=== PATIENT | female | born 1990 | race Two or more races ===

== ENCOUNTER → 2023-05-11 | Outpatient (CLI) | payer BC ==
[~2023-05-11] MED LIST: NITR-87 PO
[2023-05-11 10:03] LABS: Basophils # (auto) 0.1 10 ^3/uL (0-0.2); Basophils % (auto) 0.9 % (0.0-2.0); Eosinophils # (auto) 0.3 10 ^3/uL (0-0.8); Eosinophils % (auto) 3.6 % (0.0-7.0); Hematocrit 38.8 % (36.0-46.0); Hemoglobin 13.4 g/dL (12.2-16.2); Lymphocytes # (auto) 2.1 10 ^3/uL (0.4-5.4); Lymphocytes % (auto) 23.1 % (10.0-50.0); Mean Corpuscular Hemoglobin 28.4 pg (28.0-32.0); Mean Corpuscular Hgb Conc. 34.6 g/dL (32.0-36.0); Mean Corpuscular Volume 82.1 fL (80.0-100.0); Monocytes # (auto) 0.5 10 ^3/uL (0-1.3); Monocytes % (auto) 5.3 % (0.0-12.0); Neutrophils # (auto) 6.1 10 ^3/uL (1.6-8.6); Neutrophils % (auto) 67.1 % (37.0-80.0); Red Blood Cells 4.73 10^6/uL (4.0-5.20); Red Cell Distribution Width 13.8 % (11.8-14.3); White Blood Cell 9.2 10^3/uL (4.4-10.8)
[2023-05-11 10:34] LABS: Urine Bacteria NONE SEEN /hpf (None Seen); Urine Blood Negative /uL (Negative); Urine Clarity Clear (Clear); Urine Color Yellow (Yellow); Urine Mucus FEW (None Seen); Urine Protein, UAD Negative (Negative); Urine Specific Gravity 1.026 (1.001-1.035); Urine Urobilinogen Normal (Negative); Urine WBC 1 /hpf (0 - 5); Urine pH 5.5 (5.0-8.0)
[2023-05-11 10:42] LABS: Alanine Aminotransferase 17 U/L (7-40); Albumin 4.7 g/dL (3.2-4.8); Alkaline Phosphatase 100 U/L (46-116); Amylase 47 U/L (30-118); Anion Gap 6 (5-15); Aspartate Aminotransferase 15 U/L (13-40); BUN/Creatinine Ratio 11.8 (10.0-20.0); Blood Urea Nitrogen 11 mg/dL (9-23); Calcium 9.7 mg/dL (8.5-10.1); Carbon Dioxide 29 mmol/L (20-30); Chloride 104 mmol/L (98-107); Glucose 104 mg/dL (74-106); Potassium 3.8 mmol/L (3.5-5.1); Sodium 139 mmol/L (136-145)
[2023-05-11 10:43] LABS: Bilirubin, Total 0.5 mg/dL (0.2-1.0); Total Protein 7.5 g/dL (5.7-8.2)
[2023-05-11 10:45] LABS: Free T4 (Free Thyroxine) 0.93 ng/dL (0.89-1.76)
[2023-05-11 11:58] LABS: Lipase 45 U/L (12-53)
== END | disposition home or self-care (01) ==
LOC: LAB 09:45
DX: R10.13 Epigastric pain (principal); E53.8 Deficiency of other specified B group vitamins; E55.9 Vitamin D deficiency, unspecified; R11.0 Nausea
CPT/HCPCS: 36415; 80053; 81001; 82150; 82306; 82607; 83690; 84439; 84443; 85025

== ENCOUNTER 2023-05-12 15:07 | Emergency (ER) | payer BC ==
[~2023-05-12] VITALS: Ht 160 cm; Wt 85.9 kg
[2023-05-12] MEDS ORDERED: KETOROLAC TROMETH 60MG/2ML VIAL IM ONE (15:45)
[2023-05-12] MEDS ORDERED: METOCLOPRAMIDE HCL 10 MG TAB PO ONE (15:45)
[2023-05-12] MEDS ORDERED: ONDANSETRON HCL 4 MG/2 ML VIAL IM ONE (15:45)
[2023-05-12 16:29] VITALS: BP 111/66; PULSE 85; RESP 16; O2SAT 99
[2023-05-12 16:32] LABS: Basophils # (auto) 0.1 10 ^3/uL (0-0.2); Basophils % (auto) 0.4 % (0.0-2.0); Eosinophils # (auto) 0.2 10 ^3/uL (0-0.8); Eosinophils % (auto) 1.7 % (0.0-7.0); Hematocrit 38.1 % (36.0-46.0); Hemoglobin 13.1 g/dL (12.2-16.2); Lymphocytes # (auto) 1.8 10 ^3/uL (0.4-5.4); Lymphocytes % (auto) 12.2 % (10.0-50.0); Mean Corpuscular Hemoglobin 28.2 pg (28.0-32.0); Mean Corpuscular Hgb Conc. 34.4 g/dL (32.0-36.0); Mean Corpuscular Volume 81.9 fL (80.0-100.0); Monocytes # (auto) 0.7 10 ^3/uL (0-1.3); Monocytes % (auto) 4.9 % (0.0-12.0); Neutrophils # (auto) 11.6 10 ^3/uL (1.6-8.6); Neutrophils % (auto) 80.8 % (37.0-80.0); Red Blood Cells 4.65 10^6/uL (4.0-5.20); White Blood Cell 14.4 10^3/uL (4.4-10.8)
[2023-05-12 16:34] LABS: Alanine Aminotransferase 18 U/L (7-40); Albumin 4.6 g/dL (3.2-4.8); Alkaline Phosphatase 105 U/L (46-116); Anion Gap 4 (5-15); Aspartate Aminotransferase 12 U/L (13-40); BUN/Creatinine Ratio 11.9 (10.0-20.0); Blood Urea Nitrogen 12 mg/dL (9-23); Calcium 9.5 mg/dL (8.7-10.4); Carbon Dioxide 29 mmol/L (20-30); Chloride 104 mmol/L (98-107); Glucose 110 mg/dL (74-106); Lipase 45 U/L (12-53); Potassium 3.9 mmol/L (3.5-5.1); Sodium 137 mmol/L (136-145)
[2023-05-12 16:35] LABS: Bilirubin, Total 0.4 mg/dL (0.2-1.0); Total Protein 7.5 g/dL (5.7-8.2)
[2023-05-12 18:08] LABS: Urine Bacteria NONE SEEN /hpf (None Seen); Urine Blood 1+ /uL (Negative); Urine Clarity HAZY (Clear); Urine Color Yellow (Yellow); Urine Mucus FEW (None Seen); Urine Protein, UAD TRACE (Negative); Urine Specific Gravity 1.032 (1.001-1.035); Urine Urobilinogen Normal (Negative); Urine WBC 8 /hpf (0 - 5); Urine pH 5.5 (5.0-8.0)
[2023-05-12] MEDS ORDERED: NITROFURANTOIN 100 mg CAP PO ONE (20:30)
[2023-05-12] MEDS ORDERED: NITR-87 PO (20:44)
== END 2023-05-12 22:07 | disposition home or self-care (01) ==
LOC: ER 15:07
DX: N39.0 Urinary tract infection, site not specified (principal); Z88.2 Allergy status to sulfonamides; Z90.89 Acquired absence of other organs
CPT/HCPCS: 36415; 74176; 80053; 81001; 81025; 83690; 85025; 96372; 99285; J1885; J2405; J8597

== ENCOUNTER 2023-08-17 06:45 | Inpatient (IN) | payer BC ==
[2023-08-12 10:49] LABS: Basophils # (auto) 0.1 10 ^3/uL (0-0.2); Basophils % (auto) 0.9 % (0.0-2.0); Eosinophils # (auto) 0.3 10 ^3/uL (0-0.8); Eosinophils % (auto) 3.7 % (0.0-7.0); Hematocrit 36.9 % (36.0-46.0); Hemoglobin 12.7 g/dL (12.2-16.2); Lymphocytes # (auto) 2.2 10 ^3/uL (0.4-5.4); Lymphocytes % (auto) 26.1 % (10.0-50.0); Mean Corpuscular Hemoglobin 28.5 pg (28.0-32.0); Mean Corpuscular Hgb Conc. 34.5 g/dL (32.0-36.0); Mean Corpuscular Volume 82.7 fL (80.0-100.0); Monocytes # (auto) 0.5 10 ^3/uL (0-1.3); Monocytes % (auto) 5.4 % (0.0-12.0); Neutrophils # (auto) 5.5 10 ^3/uL (1.6-8.6); Neutrophils % (auto) 63.9 % (37.0-80.0); Red Blood Cells 4.46 10^6/uL (4.0-5.20); Red Cell Distribution Width 14.2 % (11.8-14.3); White Blood Cell 8.5 10^3/uL (4.4-10.8)
[2023-08-12 11:10] LABS: INR 0.98 (0.9-1.15); Partial Thromboplastin Time 28.2 SEC (24.5-34.5); Prothrombin Time 10.3 sec (9.3-11.8)
[2023-08-12 11:18] LABS: Urine Bacteria NONE SEEN /hpf (None Seen); Urine Blood Negative /uL (Negative); Urine Clarity Clear (Clear); Urine Color Colorless (Yellow); Urine Protein, UAD Negative (Negative); Urine Specific Gravity 1.018 (1.001-1.035); Urine Urobilinogen Normal (Negative); Urine WBC <1 /hpf (0 - 5)
[2023-08-12 11:21] LABS: Alanine Aminotransferase 17 U/L (7-40); Alkaline Phosphatase 88 U/L (46-116); Anion Gap 6 (5-15); BUN/Creatinine Ratio 9.9 (10.0-20.0); Blood Urea Nitrogen 8 mg/dL (9-23); Calcium 9.4 mg/dL (8.5-10.1); Carbon Dioxide 28 mmol/L (20-30); Chloride 106 mmol/L (98-107); Glucose 87 mg/dL (74-106); Potassium 3.7 mmol/L (3.5-5.1); Sodium 140 mmol/L (136-145)
[2023-08-12 11:22] LABS: Albumin 4.2 g/dL (3.2-4.8); Aspartate Aminotransferase 19 U/L (13-40)
[2023-08-12 11:23] LABS: Bilirubin, Total 0.3 mg/dL (0.2-1.0); Total Protein 6.8 g/dL (5.7-8.2)
[~2023-08-17] VITALS: Ht 157.5 cm; Wt 97.1 kg
[~2023-08-17 06:45] MED LIST changes: +ESCI5TAB PO; -NITR-87 PO; +ZOFR4T PO
[2023-08-17] MEDS ORDERED: ceFAZolin 2 GM/D5W100ml 100 ML IV ONE (06:57)
[2023-08-17] MEDS ORDERED: SUCCINYLCHOLINE CHLORIDE 20 MG/ML 10ML VIAL IV ONE (07:35)
[2023-08-17] MEDS ORDERED: fentaNYL CITRATE 100 MCG/2 ML VL ONE (07:37)
[2023-08-17] MEDS ORDERED: levoFLOXacin 500MG 100 ML IV ONE (07:38)
[2023-08-17] MEDS ORDERED: PROPOFOL 10 MG/ML 20 ML IV ONE (07:39)
[2023-08-17] MEDS ORDERED: LIDOCAINE W/ EPINEPHRINE 1% 20ML VIAL ONE (07:50)
[2023-08-17] MEDS ORDERED: BUPIVACAINE 0.5% P/F INJ 10 ML VIAL ONE (07:50)
[2023-08-17] MEDS ORDERED: ONDANSETRON HCL 4 MG/2 ML VIAL ONE (08:04)
[2023-08-17] MEDS ORDERED: DexAMETHasone SOD PHOS 10MG/1ML VIAL INJ ONE (08:04)
[2023-08-17] MEDS ORDERED: ROCURONIUM 10MG/ML 10ML VIAL IV ONE (08:05)
[2023-08-17] MEDS ORDERED: MEPERIDINE HCL (25 MG/ML) 1ML VIAL ONE ×2 (08:18→08:44)
[2023-08-17] MEDS ORDERED: SUGAMMADEX 200mg/2ml Vial (100MG/ML) IV ONE (08:40)
[2023-08-17] MEDS ORDERED: HYDROmorphone HCL 2 MG/ML VL/or syr IV PRN ×2 (08:45→09:00)
[2023-08-17] MEDS ORDERED: D5W/SOD CHL 0.45%/KCL 20MEQ 1,000 ML IV ONE (08:45)
[2023-08-17] MEDS ORDERED: ONDANSETRON HCL 4 MG/2 ML VIAL IV PRN (08:45)
[2023-08-17 08:54] VITALS: RESP 13; O2SAT 93
[2023-08-17] MEDS ORDERED: ONDANSETRON HCL 4 MG/2 ML VIAL IV ONE (09:00)
[2023-08-17] MEDS ORDERED: MEPERIDINE HCL (25 MG/ML) 1ML VIAL IV PRN (09:00)
[2023-08-17 09:24] LABS: Basophils # (auto) 0.1 10 ^3/uL (0-0.2); Basophils % (auto) 0.8 % (0.0-2.0); Eosinophils # (auto) 0.3 10 ^3/uL (0-0.8); Eosinophils % (auto) 3.8 % (0.0-7.0); Hematocrit 40.8 % (36.0-46.0); Hemoglobin 13.9 g/dL (12.2-16.2); Lymphocytes # (auto) 2.3 10 ^3/uL (0.4-5.4); Lymphocytes % (auto) 26.3 % (10.0-50.0); Mean Corpuscular Hemoglobin 28.1 pg (28.0-32.0); Mean Corpuscular Volume 82.5 fL (80.0-100.0); Monocytes # (auto) 0.5 10 ^3/uL (0-1.3); Monocytes % (auto) 5.8 % (0.0-12.0); Neutrophils # (auto) 5.6 10 ^3/uL (1.6-8.6); Neutrophils % (auto) 63.3 % (37.0-80.0); Nucleated Red Blood Cells % 0.1 %; Red Blood Cells 4.95 10^6/uL (4.0-5.20); Red Cell Distribution Width 14.1 % (11.8-14.3); White Blood Cell 8.8 10^3/uL (4.4-10.8)
[2023-08-17] MEDS ORDERED: DOCUSATE SOD 100 MG CAP PO PRN (09:30)
[2023-08-17] MEDS ORDERED: ACETAMINOPHEN 325 MG TAB PO PRN (09:30)
[2023-08-17 11:16] VITALS: BP 119/77; PULSE 93; RESP 18; TEMP 98.3; O2SAT 95
[2023-08-17 11:24] VITALS: BP 119/77; PULSE 93; PULSE 95; RESP 18; TEMP 98.3; O2SAT 93
[2023-08-17] MEDS: PANTOPRAZOLE 40 MG/10 ML VIAL INJ IV SCH (11:54)
[2023-08-17] MEDS: HYDROcodone-ACET 5/325MG TAB PO PRN ×3 (11:54→23:17)
[2023-08-17] MEDS: levoFLOXacin 500MG 100 ML IV SCH (11:54)
[2023-08-17 13:00] VITALS: BP 119/77; PULSE 93; RESP 18; TEMP 98.3; O2SAT 95
[2023-08-17] MEDS: HYDROmorphone HCL 2 MG/ML VL/or syr IV PRN ×2 (15:06→20:38)
[2023-08-17] MEDS: SODIUM CHLOR 0.9% PF (SALINE LOCK) 10ML VIAL/SYR IV SCH ×2 (15:07→22:14)
[2023-08-17 16:39] VITALS: BP 111/66; PULSE 93; RESP 18; TEMP 98.3; O2SAT 96
[2023-08-17 22:00] VITALS: BP 120/73; PULSE 98; RESP 16; TEMP 98.2; O2SAT 96
[2023-08-18] MEDS: HYDROmorphone HCL 2 MG/ML VL/or syr IV PRN ×2 (01:20→09:12)
[2023-08-18] MEDS: SODIUM CHLOR 0.9% PF (SALINE LOCK) 10ML VIAL/SYR IV SCH ×3 (05:10→21:25)
[2023-08-18] MEDS: HYDROcodone-ACET 5/325MG TAB PO PRN (05:10)
[2023-08-18] MEDS: ONDANSETRON HCL 4 MG/2 ML VIAL IV PRN ×2 (05:10→09:13)
[2023-08-18 05:23] VITALS: BP 119/55; PULSE 91; RESP 19; TEMP 97.9; O2SAT 94
[2023-08-18 09:05] VITALS: BP 121/73; PULSE 83; RESP 15; TEMP 98.6; O2SAT 91
[2023-08-18] MEDS: PANTOPRAZOLE 40 MG/10 ML VIAL INJ IV SCH (10:18)
[2023-08-18] MEDS: levoFLOXacin 500MG 100 ML IV SCH (10:18)
[2023-08-18 12:52] VITALS: BP 97/41; PULSE 77; RESP 15; TEMP 98.4; O2SAT 93
[2023-08-18] MEDS: OXYCODONE W/ ACETAMINOPHEN 5/325MG TABLET PO PRN ×2 (14:14→20:12)
[2023-08-18 16:44] VITALS: BP 108/56; PULSE 90; RESP 20; TEMP 97.8; O2SAT 94
[2023-08-18 20:00] VITALS: PULSE 72
[2023-08-18] MEDS: DOCUSATE SOD 100 MG CAP PO SCH (21:23)
[2023-08-18 22:00] VITALS: BP 111/67; PULSE 72; RESP 20; O2SAT 95
[2023-08-19 05:00] VITALS: BP 99/48; PULSE 71; RESP 20; TEMP 98.2; O2SAT 93
[2023-08-19] MEDS: SODIUM CHLOR 0.9% PF (SALINE LOCK) 10ML VIAL/SYR IV SCH (06:20)
[2023-08-19] MEDS: OXYCODONE W/ ACETAMINOPHEN 5/325MG TABLET PO PRN (08:47)
[2023-08-19] MEDS: DOCUSATE SOD 100 MG CAP PO SCH (08:47)
[2023-08-19] MEDS: PANTOPRAZOLE 40 MG/10 ML VIAL INJ IV SCH (08:47)
[2023-08-19] MEDS ORDERED: PERCOT PO (10:41)
[2023-08-19] MEDS ORDERED: DOCU-265 PO (10:47)
[2023-08-19 10:48] VITALS: BP 132/72; PULSE 78; RESP 18; TEMP 98; O2SAT 94
[2023-08-19 11:17] VITALS: BP 132/72; PULSE 78; RESP 18; TEMP 98; O2SAT 94
[2023-08-19 12:38] VITALS: BP 104/62; PULSE 70; RESP 18; TEMP 98; O2SAT 96
== END 2023-08-19 12:40 | disposition home or self-care (01) | DRG 419 ==
LOC: SUR 06:45 → EEVIPCON 08:15 → OVERFLOW 09:22 → CENTRAL 11:27
PROVIDERS: ADMIT Internal Medicine; ATTEND Nurse Practitioner Acute Care
PROC: 0FT44ZZ Resection of Gallbladder, Percutaneous Endoscopic Approach (ICD-10-PCS; principal; 2023-08-17 07:58)
DX: K80.00 Calculus of gallbladder with acute cholecystitis without obstruction (principal); K59.00 Constipation, unspecified; E66.9 Obesity, unspecified; Z68.39 Body mass index [BMI] 39.0-39.9, adult
CPT/HCPCS: 36415; 80053; 81001; 82247; 84702; 85025; 85610; 85730; 86850; 86900; 86901; C9113; G0378; J0330; J1100; J1956; J2405; J2704; J3490

== ENCOUNTER → 2024-11-27 | Outpatient (CLI) | payer BC ==
[~2024-11-27] MED LIST changes: +DOCU-265 PO; +PERCOT PO
[2024-11-27 09:27] LABS: Basophils # (auto) 0.1 10 ^3/uL (0-0.2); Basophils % (auto) 0.8 % (0.0-2.0); Eosinophils # (auto) 0.3 10 ^3/uL (0-0.8); Eosinophils % (auto) 3.1 % (0.0-7.0); Hematocrit 39.6 % (36.0-46.0); Hemoglobin 13.6 g/dL (12.2-16.2); Lymphocytes # (auto) 2.3 10 ^3/uL (0.4-5.4); Lymphocytes % (auto) 24.2 % (10.0-50.0); Mean Corpuscular Hemoglobin 27.9 pg (28.0-32.0); Mean Corpuscular Hgb Conc. 34.3 g/dL (32.0-36.0); Mean Corpuscular Volume 81.2 fL (80.0-100.0); Monocytes # (auto) 0.5 10 ^3/uL (0-1.3); Monocytes % (auto) 4.9 % (0.0-12.0); Neutrophils # (auto) 6.3 10 ^3/uL (1.6-8.6); Nucleated Red Blood Cells % 0.1 %; Platelet Count (auto) 245 10^3/uL (140-450); Red Blood Cells 4.87 10^6/uL (4.0-5.20); White Blood Cell 9.4 10^3/uL (4.4-10.8)
[2024-11-27 09:44] LABS: Alanine Aminotransferase 22 U/L (7-40); Albumin 4.5 g/dL (3.2-4.8); Alkaline Phosphatase 97 U/L (46-116); Anion Gap 7 (5-15); BUN/Creatinine Ratio 13.6 (10.0-20.0); Blood Urea Nitrogen 12 mg/dL (9-23); Calcium 9.8 mg/dL (8.7-10.4); Carbon Dioxide 28 mmol/L (20-31); Chloride 105 mmol/L (98-107); Glucose 96 mg/dL (74-106); Potassium 4.3 mmol/L (3.5-5.1); Sodium 140 mmol/L (136-145); Total Protein 7.5 g/dL (5.7-8.2); Triglycerides 144 mg/dL (< 150)
[2024-11-27 09:45] LABS: Aspartate Aminotransferase 13 U/L (13-40); Cholesterol 165 mg/dL (< 200); HDL Cholesterol 36 mg/dL (40-59); LDL Cholesterol 117 mg/dL (< 100)
[2024-11-27 09:46] LABS: Bilirubin, Total 0.5 mg/dL (0.2-1.0)
== END | disposition home or self-care (01) ==
LOC: LAB 09:02
PROVIDERS: ATTEND Nurse Practitioner Family
DX: R03.0 Elevated blood-pressure reading, without diagnosis of hypertension (principal); F41.9 Anxiety disorder, unspecified; Z00.01 Encounter for general adult medical examination with abnormal findings
CPT/HCPCS: 36415; 80053; 80061; 84443; 85025

== ENCOUNTER 2025-01-13 18:50 | Emergency (ER) | payer BC ==
[~2025-01-13] VITALS: Ht 157.5 cm; Wt 88.5 kg
--- NOTE | 2025-01-13 19:12 | ED.PDOC ---
PATENTED HOGSHEAD ASSEMBLER HPI Comments 34 y/o obese F presents for sudden worsening abdominal cramping pain, with associated vaginal bleeding and blot clot production. Patient reports having abdominal cramps since having an IUD placed by her PATENTED HOGSHEAD ASSEMBLER on 01/04/25 but reports severe pain today. Pain is described as cramping. Patient states her normal menstrual cycle began on 01/09/25. Denies any heavy vaginal bleeding, urinary symptoms, nausea, vomiting, or other associated symptoms. Patient states she last saw her PATENTED HOGSHEAD ASSEMBLER on 01/11/25 and was reassured her IUD was in place. Patient also has history of tonsillectomy, cholecystectomy, and remote history of seizure (last was in 2006). Patient took Advil dual action and 3x 200mg Ibuprofen at 1600 and 1700, respectively, with no improvement of pain. Chief Complaint: Abdominal Pain Time Seen by MD: 19:00 Reviewed Notes: Nurses Notes, Medications, Allergies Allergies: Coded Allergies: Cephalexin (Unverified Allergy, Intermediate, diarrhea, N/V, 08/12/23) Nitrofurantoin (Unverified Allergy, Intermediate, facial rash, 08/12/23) Sulfa Drugs (Unverified Allergy, Intermediate, tongue swells, 08/12/23) Home Meds Active Scripts Docusate Sodium (Docusate Sodium) 100 Mg Cap, 100 MG PO BID for 7 Days, #14 CAP Prov:KASHIF TOLENTINO FINANCE ASSISTANT 08/19/23 Oxycodone W/ Acetaminophen (Percocet 5/325MG) 1 Tab Tb, 1 TAB PO QID for 4 Days, #16 TAB Prov:KASHIF TOLENTINO FINANCE ASSISTANT 08/19/23 Reported Medications Escitalopram Oxalate (Lexapro) 5 Mg Tab, 5 MG PO HS, TAB 08/12/23 Ondansetron Odt 4MG Tab (ZOFRAN PO) 4 Mg Tb, 4 MG PO PRN, TAB ODT TAB-DISSOLVE IN MOUTH, THEN SWALLOW 08/12/23 Information Source: Patient Past Medical History PAST MEDICAL HISTORY: Seizures Surgical History: Cholecystectomy, Tonsillectomy GRID MAKER History: Denies all GRID MAKER Hx Family History Family History: Reviewed,noncontributory to illness Social History Smoker: Non-Smoker Alcohol: Occasionally Drugs: Denies Drug Use Lives In: Home All Other Systems: Reviewed and Negative (Comprehensive review of systems are negative unless otherwise stated in HPI) Physical Exam General Appearance: No Apparent Distress, Obese HEENT: Other (Pupils and face symmetric. Moist mucous membranes.) Neck: Full Range of Motion, Normal Inspection Respiratory: Lungs Clear, No Accessory Muscle Use, No Respiratory Distress, Normal Breath Sounds Cardiovascular: No Edema, No JVD, Regular Rate/Rhythm Breast Exam: Deferred Gastrointestinal: Soft, Suprapubic, Tenderness Genitalia: Deferred Pelvic: Deferred Rectal: Deferred Extremities: Normal inspection, Normal range of motion, Non-tender, No pedal edema Neurologic: Alert (Oriented x4), Normal Affect, Normal Mood, Other (Ambulatory) Cerebellar Function: NOT DONE Reflexes: NOT DONE Skin: Dry, Normal Color, Warm Lymphatic: NOT DONE Was a procedure done? Was a procedure done?: No Differential Diagnosis (GRID MAKER) Vaginal Bleeding: Blood Loss Anemia, Cervicitis, Hormonal, Menstrual Bleeding, Myomatous Uterus, UTI Vaginal Discharge: Comments Displaced IUD, among others X-Ray, Labs, Meds, VS Vital Signs Date Time Temp Pulse Resp B/P (MAP) Pulse Ox O2 Delivery O2 Flow Rate FiO2 01/13/25 19:58 84 16 96 Room Air* 0 21 01/13/25 19:58 98.2 82 18 141/87 (105) 95 98.2 01/13/25 18:56 99.0 100 17 128/78 (95) 97 99.0 Lab Test 01/13/25 19:12 01/13/25 18:59 Range/Units White Blood Count 9.2 4.4-10.8 10^3/uL Red Blood Count 4.39 4.0-5.20 10^6/uL Hemoglobin 12.3 12.2-16.2 g/dL Hematocrit 35.6 L 36.0-46.0 % Mean Corpuscular Volume 81.0 80.0-100.0 fL Mean Corpuscular Hemoglobin 28.0 28.0-32.0 pg Mean Corpuscular Hemoglobin Concent 34.6 32.0-36.0 g/dL Red Cell Distribution Width 13.6 11.8-14.3 % Platelet Count 236 140-450 10^3/uL Mean Platelet Volume 8.8 6.9-10.8 fL Neutrophils (%) (Auto) 68.4 37.0-80.0 % Lymphocytes (%) (Auto) 21.4 10.0-50.0 % Monocytes (%) (Auto) 5.1 0.0-12.0 % Eosinophils (%) (Auto) 4.3 0.0-7.0 % Basophils (%) (Auto) 0.8 0.0-2.0 % Neutrophils # (Auto) 6.3 1.6-8.6 10 ^3/uL Lymphocytes # (Auto) 2.0 0.4-5.4 10 ^3/uL Monocytes # (Auto) 0.5 0-1.3 10 ^3/uL Eosinophils # (Auto) 0.4 0-0.8 10 ^3/uL Basophils # (Auto) 0.1 0-0.2 10 ^3/uL Nucleated Red Blood Cells 0.0 % Sodium Level 144 136-145 mmol/L Potassium Level 4.1 3.5-5.1 mmol/L Chloride Level 110 H 98-107 mmol/L Carbon Dioxide Level 26 20-31 mmol/L Anion Gap 8 5-15 Blood Urea Nitrogen 11 9-23 mg/dL Creatinine 1.06 H 0.550-1.02 mg/dL Glomerular Filtration Rate Calc 70 >90 mL/min BUN/Creatinine Ratio 10.4 10.0-20.0 Serum Glucose 97 74-106 mg/dL Calcium Level 9.3 8.7-10.4 mg/dL Beta HCG, Quantitative 0.7 L 1.5-4.2 mIU/mL Urine Color Yellow Yellow Urine Clarity Clear Clear Urine pH 6.0 5.0-9.0 Urine Specific [place] 1.036 H 1.001-1.035 Urine Protein 1+ H Negative Urine Ketones Trace Negative Urine Blood 3+ H Negative /uL Urine Nitrite Negative Negative Urine Bilirubin Negative Negative Urine Urobilinogen 2 H Negative mg/dL Urine Leukocyte Esterase 2+ Negative /uL Urine RBC 356 0 - 4 /hpf Urine Microscopic WBC 19 H 0-5 /HPF Urine Squamous Epithelial Cells Few <5 /hpf Urine Bacteria Few H None Seen /hpf Urine Mucus Few None Seen Urine Glucose Normal Normal mg/dL Current Medications Medications (Trade) Dose Ordered Sig/Faye Route Start Time Stop Time Status Last Admin Acetaminophen/ Hydrocodone Bitart ([place] 5/325MG Tab) 1 tab ONCE ONCE PO 01/13/25 19:15 01/13/25 19:16 DC 01/13/25 20:09 Ondansetron HCl (Zofran Po) 8 mg ONCE ONCE PO 01/13/25 19:15 01/13/25 19:16 DC 01/13/25 20:08 Dicyclomine HCl (Bentyl Injection) 20 mg ONCE ONCE IM 01/13/25 19:15 01/13/25 19:16 DC 01/13/25 20:09 Ceftriaxone Sodium (Rocephin W Lidocaine IM) 1 gm ONCE ONCE IM 01/13/25 20:00 01/13/25 20:01 DC 01/13/25 20:09 [place] [address] Ph: [phone] DIAGNOSTIC IMAGING Diagnostic Imaging Report : [id number] Signed PATIENT: VICKY MARS ACCT: [id number] UNIT: [id number] : 1990 LOC: ER ROOM / BED: / AGE / SEX: 34 / F ADM STATUS: REG ER SERVICE 02 ORDERING PHYSICIAN: JESSIKA SOLIS MD PROCEDURE(s): PELUS - PELVIC REASON: pelvic cramping, eval IUD position ORDER NUMBER(s): [id number], ACCESSION NUMBER(s): [id number] PELVIC ULTRASOUND CLINICAL HISTORY: pelvic cramping, eval IUD position COMPARISON: None TECHNIQUE: Transabdominal and transvaginal grayscale, color-flow Doppler, and duplex Doppler was performed. FINDINGS: The uterus measures 8.9 x 4.8 x 5.2 cm. Uterine myometrium is grossly unremarkable. Intrauterine device appear centered within the endometrial canal. Endometrial thickness 0.6 cm. Subcentimeter anechoic structure with central echogenicity is seen within the cervical region. This measures approximately 8 mm in diameter. The right ovary measures 3.1 x 1.6 x 1.9 cm. The left ovary measures 3.9 x 2.0 x 2.8 cm. Both ovaries demonstrate dopplerable blood flow on spectral analysis. IMPRESSION: IUD appears centered within the endometrial canal. If there is persistent concern for abnormal positioning, CT may be considered to further evaluate. Small echogenic structure in the cervix is nonspecific but may represent a complex cyst or polyp. Recommend further workup as clinically indicated. ATED BY: ALONSO ROCHA MD DICTATED DATE/TIME: 01/13/252010 X-Ray, Labs, Meds, VS Comment 34-year-old female with remote history of seizures and recent IUD insertion complaining of pelvic cramping and vaginal bleeding Vitals unremarkable Exam remarkable for suprapubic tenderness to palpation Rhythm strip independently interpreted by me: Sinus rhythm, rate 100, no ectopy. Pelvic ultrasound IMPRESSION: IUD appears centered within the endometrial canal. If there is persistent concern for abnormal positioning, CT may be considered to further evaluate. Small echogenic structure in the cervix is nonspecific but may represent a complex cyst or polyp. Recommend further workup as clinically indicated. CBC and basic metabolic panel unremarkable. UA abnormal consistent with UTI. Urine negative. Patient treated with the following in the ED: Bentyl 20 mg IM, [place] 5/325 mg p.o., Zofran ODT 8 mg p.o., Rocephin 1 g IM On re-evaluation, patient states pain has improved. Vitals were stable. Bleed ing is [id number]. Patient appears stable for discharge with close outpatient follow-up with her OBGYN. Rx Keflex, Bentyl, Zofran, Tylenol Time of 1ST Reevaluation: 19:30 Reevaluation 1ST: Unchanged Patient Education/Counseling: Diagnosis, Treatment, Need For Follow Up Family Education/Counseling: No Family Present Departure 1 Departure Time of Disposition: 20:29 Impression: Primary Impression: Urinary tract infection Qualified Codes: N30.01 - Acute cystitis with hematuria Additional Impression: Pelvic cramping Disposition: HOME / SELF CARE / HOMELESS Condition: Stable Additional Instructions: Your blood tests were unremarkable. Your urine test showed you have a bladder infection. I have prescribed pain medication and antibiotics. Your ultrasound shows the IUD appears to be in the correct position. Please see the report below. Follow-up with Dr. Dominique 1-2 days. Return to ER for persistent or worsening symptoms. [address] [address] Ph: [phone] DIAGNOSTIC IMAGING Diagnostic Imaging Report : [id number] Signed PATIENT: VICKY MARS ACCT: [id number] UNIT: [id number] : 1990 LOC: ER ROOM / BED: / AGE / SEX: 34 / F ADM STATUS: REG ER SERVICE 8035 ORDERING PHYSICIAN: JESSIKA SOLIS MD PROCEDURE(s): PELUS - PELVIC REASON: pelvic cramping, eval IUD position ORDER NUMBER(s): [id number], ACCESSION NUMBER(s): [id number] PELVIC ULTRASOUND CLINICAL HISTORY: pelvic cramping, eval IUD position COMPARISON: None TECHNIQUE: Transabdominal and transvaginal grayscale, color-flow Doppler, and duplex Doppler was performed. FINDINGS: The uterus measures 8.9 x 4.8 x 5.2 cm. Uterine myometrium is grossly unremarkable. Intrauterine device appear centered within the endometrial canal. Endometrial thickness 0.6 cm. Subcentimeter anechoic structure with central echogenicity is seen within the cervical region. This measures approximately 8 mm in diameter. The right ovary measures 3.1 x 1.6 x 1.9 cm. The left ovary measures 3.9 x 2.0 x 2.8 cm. Both ovaries demonstrate dopplerable blood flow on spectral analysis. IMPRESSION: IUD appears centered within the endometrial canal. If there is persistent concern for abnormal positioning, CT may be considered to further evaluate. Small echogenic structure in the cervix is nonspecific but may represent a complex cyst or polyp. Recommend further workup as clinically indicated. ATED BY: ALONSO ROCHA MD DICTATED DATE/TIME: 01/13/252010 e-Prescriptions Dicyclomine Hcl (BENTYL CAPSULE) 10 Mg Cp 2 CAP PO Q6HP PRN, #30 CAP 11 Refills Prn cramping Prov: JESSIKA SOLIS MD 01/13/25 Acetaminophen (Tylenol Extra Strength) 500 Mg Tab 1000 MG PO Q6HP PRN, #30 TAB Prn pain Prov: JESSIKA SOLIS MD 01/13/25 Cephalexin Monohydrate (Cephalexin) 500 Mg Cap 1 CAP PO QID for 10 Days, #40 CAP Prov: JESSIKA SOLIS MD 01/13/25 Discharged With: Relative (Mother) Critical Care Note Critical Care Time?: No Stability Stability form required: No Heart Score Heart Score: Heart Score Response (Comments) Value History N/A 0 EKG N/A 0 Age N/A 0 Risk Factors N/A 0 Troponin N/A 0 Total 0 I personally scribed for JESSIKA SOLIS MD ([email or web address]) on 01/13/25 at 19:12. Electronically submitted by Raphael Nolasco ([email or web address]). JESSIKA SOLIS MD Jan 13, 2025 19:12
[2025-01-13 19:19] LABS: Basophils # (auto) 0.1 10 ^3/uL (0-0.2); Basophils % (auto) 0.8 % (0.0-2.0); Eosinophils # (auto) 0.4 10 ^3/uL (0-0.8); Eosinophils % (auto) 4.3 % (0.0-7.0); Hematocrit 35.6 % (36.0-46.0); Hemoglobin 12.3 g/dL (12.2-16.2); Lymphocytes % (auto) 21.4 % (10.0-50.0); Mean Corpuscular Hgb Conc. 34.6 g/dL (32.0-36.0); Monocytes # (auto) 0.5 10 ^3/uL (0-1.3); Monocytes % (auto) 5.1 % (0.0-12.0); Neutrophils # (auto) 6.3 10 ^3/uL (1.6-8.6); Neutrophils % (auto) 68.4 % (37.0-80.0); Platelet Count (auto) 236 10^3/uL (140-450); Red Blood Cells 4.39 10^6/uL (4.0-5.20); Red Cell Distribution Width 13.6 % (11.8-14.3); White Blood Cell 9.2 10^3/uL (4.4-10.8)
[2025-01-13 19:23] LABS: Urine Bacteria FEW /hpf (None Seen); Urine Blood 3+ /uL (Negative); Urine Clarity Clear (Clear); Urine Color Yellow (Yellow); Urine Mucus FEW (None Seen); Urine Protein, UAD 1+ (Negative); Urine Specific Gravity 1.036 (1.001-1.035); Urine Squamous Epithelial Cell FEW /hpf (<5); Urine Urobilinogen 2 mg/dL (Negative); Urine WBC 19 /HPF (0-5)
[2025-01-13 19:29] LABS: Chloride 110 mmol/L (98-107); Potassium 4.1 mmol/L (3.5-5.1); Sodium 144 mmol/L (136-145)
[2025-01-13 19:30] LABS: Anion Gap 8 (5-15); Calcium 9.3 mg/dL (8.7-10.4); Carbon Dioxide 26 mmol/L (20-31)
[2025-01-13 19:35] LABS: BUN/Creatinine Ratio 10.4 (10.0-20.0); Blood Urea Nitrogen 11 mg/dL (9-23); Glucose 97 mg/dL (74-106)
[2025-01-13 19:58] VITALS: BP 141/87; PULSE 84; RESP 16; TEMP 98.2; O2SAT 96
[2025-01-13] MEDS: ONDANSETRON ODT 4 MG TAB PO ONE (20:08)
[2025-01-13] MEDS: DICYCLOMINE HCL (10MG/ML) 2 ML AMPULE IM ONE (20:09)
[2025-01-13] MEDS: HYDROcodone-ACET 5/325MG TAB PO ONE (20:09)
[2025-01-13] MEDS: cefTRIAXone SOD 1,000 MG VL ONE (20:09)
[2025-01-13] MEDS: cefTRIAXone W LIDOCAINE 1 GM IM IM ONE (20:09)
--- NOTE | 2025-01-13 20:14 | DVH ---
PELVIC ULTRASOUND CLINICAL HISTORY: pelvic cramping, eval IUD position COMPARISON: None TECHNIQUE: Transabdominal and transvaginal grayscale, color-flow Doppler, and duplex Doppler was per formed. FINDINGS: The uterus measures 8.9 x 4.8 x 5.2 cm. Uterine myometrium is grossly unremarkable. Intrauterine jacqueline ce appear centered within the endometrial canal. Endometrial thickness 0.6 cm. Subcentimeter anechoic structure with central echogenicity is seen within the cervical region. This m easures approximately 8 mm in diameter. The right ovary measures 3.1 x 1.6 x 1.9 cm. The left ovary measures 3.9 x 2.0 x 2.8 cm. Both ovarie s demonstrate dopplerable blood flow on spectral analysis. IMPRESSION: IUD appears centered within the endometrial canal. If there is persistent concern for abnormal positi oning, CT may be considered to further evaluate. Small echogenic structure in the cervix is nonspecific but may represent a complex cyst or polyp. Rec ommend further workup as clinically indicated.
[2025-01-13] MEDS ORDERED: CEPH500C PO (20:32)
[2025-01-13] MEDS ORDERED: DICY10CA PO (20:32)
[2025-01-13] MEDS ORDERED: ACET-1304 PO (20:32)
== END 2025-01-13 20:43 | disposition home or self-care (01) ==
LOC: ER 18:50
DX: N39.0 Urinary tract infection, site not specified (principal); R10.2 Pelvic and perineal pain; Z90.49 Acquired absence of other specified parts of digestive tract; Z90.89 Acquired absence of other organs; Z88.2 Allergy status to sulfonamides; Z88.1 Allergy status to other antibiotic agents
CPT/HCPCS: 36415; 76856; 80048; 81001; 84702; 85025; 96372; 99285; J0500; J0696; Q0162